=== PATIENT | female | born 1975 | race Caucasian/White ===

== ENCOUNTER 2020-09-28 10:05 | Outpatient (CLI) | payer BC, SELFPAY ==
[2020-09-28 12:59] LABS: Hemoglobin A1C 5.1 % (<5.7)
[2020-09-28 13:12] LABS: Free T4 Free Thyroxine 1.21 ng/mL (0.78-2.19)
[2020-09-28 14:35] LABS: Alanine Aminotransferase 37 U/L (4-35); Albumin Level 4.6 g/dL (3.5-5.1); Alkaline Phosphatase 79 U/L (38-126); Anion Gap 9 mmol/L (8-16); Aspartate Amino Transferase 30 U/L (14-36); Bilirubin,Total 0.3 mg/dL (0.2-1.3); Blood Urea Nitrogen 14 mg/dL (7-17); Calcium 9.8 mg/dL (8.4-10.2); Carbon Dioxide 28 mmol/L (22-30); Chloride 100 mmol/L (98-107); Cholesterol 215 mg/dL (0-200); Estimated Glomerular Filt Rate > 60; Glucose 84 mg/dL (65-105); HDL Direct 74 mg/dL; Sodium 137 mmol/L (137-145); Triglycerides 144 mg/dL (<150)
[2020-09-28 14:46] LABS: LDL Cholesterol Direct 124 mg/dL
[2020-09-28 15:05] LABS: Thyroid Stimulating Hormone 0.059 uIU/mL (0.465-4.680)
[2020-10-02 06:35] LABS: Triiodothyronine T3 Free 3.3 pg/mL (2.3-4.2)
== END 2020-09-28 10:06 | disposition home or self-care (01) ==
LOC: ANHWCLAB 10:10
PROVIDERS: Referring Provider Internal Medicine Endocrinology, Diabetes & Metabolism; Visit Provider Internal Medicine Endocrinology, Diabetes & Metabolism
DX: E03.9 Hypothyroidism, unspecified (principal); E04.9 Nontoxic goiter, unspecified; E28.2 Polycystic ovarian syndrome
CPT/HCPCS: 36415; 80053; 80061; 83036; 84439; 84443; 84481